=== PATIENT | female | born 1980 | race Caucasian/White ===

== ENCOUNTER → 2017-12-31 11:34 | Outpatient (CLI) | payer OTHER, SELFPAY ==
[2017-12-31 12:16] LABS: Add Manual Diff / Slide Review NO; Basophils Percent Auto 0.4 % (0-2); Hematocrit 41.5 % (36-46); Hemoglobin 14.3 g/dL (12.0-16.0); Lymphocytes Percent Auto 20.5 % (25-40); Mean Corpuscular HGB Conc 34.4 % (30-36); Mean Corpuscular Hemoglobin 32.4 PG (26-34); Mean Corpuscular Volume 94.2 fL (80-100); Monocytes Percent Auto 7.6 % (3-14); Neutrophils Absolute Auto 3900 /uL (3000-5900); Neutrophils Percent Auto 67.5 % (50-75); Platelet Count 226 X10^3/uL (150-400); Red Blood Cell Count 4.41 X10^6/uL (4.0-5.2); Red Cell Distribution Width 12.4 % (11.6-14.8); White Blood Cell Count 5.8 X10^3/uL (4.5-11.0)
[2017-12-31 13:13] LABS: Alanine Aminotransferase 33 IU/L (9-52); Albumin 4.4 g/dL (3.5-5.0); Albumin Globulin Ratio 1.5 (1.0-2.8); Alkaline Phosphatase 87 U/L (38-126); Aspartate Aminotransferase 25 IU/L (14-36); BUN Creatinine Ratio 17.1 (6-22); Bilirubin Total 0.6 mg/dL (0.2-1.3); Blood Urea Nitrogen 12 mg/dL (7-17); Calcium 9.9 mg/dL (8.4-10.2); Carbon Dioxide 34 mmol/L (22-32); Chloride 102 mmol/L (98-107); Estimated Glomerular Filt Rate > 60.0 mL/min (>60); Glucose 90 mg/dL (70-100); HEMOLYSIS < 15 (0-50); Potassium 4.2 mmol/L (3.4-5.1); Sodium 144 mmol/L (137-145); Total Protein 7.4 g/dL (6.3-8.2)
[2018-01-02 15:57] LABS: Cancer Antigen 27.29 16 U/mL (< 38)
--- NOTE | 2018-02-11 09:02 | ONC.NAV ---
Description: Survivorship Care Summary Packet Activity: Sent copies to both patient and primary care provider.
== END ==
PROVIDERS: PCP Family Medicine; Visit Provider Internal Medicine Medical Oncology
DX: C50.911 Malignant neoplasm of unspecified site of right female breast (principal)
CPT/HCPCS: 36415; 80053; 84443; 85025; 86300

== ENCOUNTER → 2018-05-09 11:43 | Outpatient (CLI) | payer OTHER, SELFPAY ==
--- NOTE | 2018-05-09 | DI.MG.S_ITS ---
UNILATERAL LEFT DIGITAL SCREENING MAMMOGRAM 3D/2D WITH CAD POST MASTECTOMY: 05/09/2018 CLINICAL: Routine screening. Personal history of right breast cancer. Comparison is made to exams dated: 05/03/2017 mammogram, 03/20/2016 breast MRI, and 02/21/2016 mammogram - [facility]. The tissue of left breast is heterogeneously dense. This may lower the sensitivity of mammography. Current study was also evaluated with a Computer Aided Detection (CAD) system. No significant masses, calcifications, or other findings are seen in the breast. There has been no significant interval change. IMPRESSION: NEGATIVE There is no mammographic evidence of malignancy. A 1 year screening mammogram is recommended. This exam was interpreted at Station ID: [id number]. NOTE: For mammograms, a report in lay terms will be sent to the patient. Approximately 15% of breast malignancies will not be visualized mammographically. In the management of a palpable breast mass, a negative mammogram must not discourage biopsy of a clinically suspicious lesion. Electronically Signed By: Indy henderson/jada:05/09/2018 12:37:13 copy to: COREY ROSA letter sent: Normal Exam ACR BI-RADS Category 1: Negative 3341F
== END ==
PROVIDERS: Family Provider Family Medicine; PCP Family Medicine; Visit Provider Internal Medicine Medical Oncology
DX: Z12.31 Encounter for screening mammogram for malignant neoplasm of breast (principal); Z85.3 Personal history of malignant neoplasm of breast
CPT/HCPCS: 77063; 77067

== ENCOUNTER → 2018-05-26 11:03 | Outpatient (CLI) | payer OTHER, SELFPAY ==
--- NOTE | 2018-05-26 | DI.RAD.S_ITS ---
PROCEDURE: XR CHEST 2V INDICATIONS: COUGH TECHNIQUE: 2 views of the chest were acquired. COMPARISON: [facility], , CHEST 1 VIEW, 05/01/2016, 9:33. FINDINGS: Surgical changes and devices: Prior right surgical clips, consistent with rest carcinoma treatment. No sign of metastatic disease. Lungs and pleura: Lungs are clear. No pleural effusions or pneumothorax. Mediastinum: Mediastinal contours are normal. Heart size is normal. Bones and chest wall: No suspicious bony abnormalities. Soft tissues appear unremarkable. IMPRESSION: Normal for age. Source of cough symptoms is not found. Dictated by: Aj Munoz M.D. on 05/26/2018 at 11:22 Approved by: Aj Munoz M.D. on 05/26/2018 at 11:22
== END ==
PROVIDERS: Family Provider Family Medicine; PCP Family Medicine; Visit Provider Family Medicine
DX: R05 Cough (principal)
CPT/HCPCS: 71046

== ENCOUNTER → 2018-06-13 09:55 | Outpatient (CLI) | payer OTHER, SELFPAY ==
[2018-06-13 10:43] LABS: Add Manual Diff / Slide Review NO; Basophils Absolute Auto 0 /uL (0-100); Basophils Percent Auto 0.2 % (0-2); Eosinophils Absolute Auto 100 /uL (0-450); Eosinophils Percent Auto 2.5 % (2-4); Hematocrit 40.2 % (36-46); Hemoglobin 13.7 g/dL (12.0-16.0); Lymphocytes Absolute Auto 1100 /uL (1100-4500); Mean Corpuscular HGB Conc 34.1 % (30-36); Mean Corpuscular Volume 93.8 fL (80-100); Monocytes Absolute Auto 500 /uL (0-900); Monocytes Percent Auto 9.1 % (3-14); Neutrophils Absolute Auto 3600 /uL (1500-7000); Neutrophils Percent Auto 68.2 % (50-75); Platelet Count 197 X10^3/uL (150-400); Red Blood Cell Count 4.28 X10^6/uL (4.0-5.2); Red Cell Distribution Width 12.6 % (11.6-14.8); White Blood Cell Count 5.3 X10^3/uL (4.5-11.0)
[2018-06-13 11:24] LABS: Alanine Aminotransferase 38 IU/L (9-52); Albumin 4.4 g/dL (3.5-5.0); Albumin Globulin Ratio 1.5 (1.0-2.8); Alkaline Phosphatase 73 U/L (38-126); Aspartate Aminotransferase 27 IU/L (14-36); BUN Creatinine Ratio 18.6 (6-22); Bilirubin Total 0.5 mg/dL (0.2-1.3); Blood Urea Nitrogen 13 mg/dL (7-17); Calcium 9.3 mg/dL (8.4-10.2); Carbon Dioxide 29 mmol/L (22-32); Chloride 102 mmol/L (98-107); Cholesterol 166 mg/dL (140-199); Estimated Glomerular Filt Rate > 60.0 mL/min (>60); Globulin 2.9 g/dL (1.7-4.1); Glucose 93 mg/dL (70-100); HDL Cholesterol 49 mg/dL (40-60); HEMOLYSIS < 15 (0-50); LDL Cholesterol Calculated 99 mg/dL (<100); Potassium 4.3 mmol/L (3.4-5.1); Sodium 138 mmol/L (137-145); Total Protein 7.3 g/dL (6.3-8.2); Triglycerides 90 mg/dL (35-150)
[2018-06-13 11:40] LABS: C-Reactive Protein Quant < 0.5 mg/dL (<1.0)
[2018-06-13 11:44] LABS: Erythrocyte Sedimentation Rate 3 MM/HR (0-20)
== END ==
PROVIDERS: PCP Family Medicine; Visit Provider Family Medicine
DX: C50.911 Malignant neoplasm of unspecified site of right female breast (principal); R05 Cough; R35.0 Frequency of micturition; Z00.00 Encounter for general adult medical examination without abnormal findings
CPT/HCPCS: 36415; 80053; 80061; 84443; 85025; 85651; 86140

== ENCOUNTER → 2018-06-27 15:42 | Outpatient (CLI) | payer OTHER, SELFPAY ==
--- NOTE | 2018-06-27 | DI.CT.S_ITS ---
PROCEDURE: CT CHEST W CON INDICATIONS: COUGH, BREAST CANCER, RIGHT LOWER LEG PAIN TECHNIQUE: After the administration of intravenous contrast, 5 mm thick sections acquired from the pulmonary apices to the posterior costophrenic angles. 7 mm thick coronal and sagittal MIP reformats were acquired. For radiation dose reduction, the following was used: automated exposure control, adjustment of mA and/or kV according to patient size. COMPARISON: None. FINDINGS: Image quality: Excellent. Lungs and pleura: No acute consolidation. No pleural effusions or pneumothorax. Central and peripheral airways are patent and normal in caliber. Mediastinum: Heart size is normal. No pericardial effusion. Subcentimeter right hilar lymph node noted however no mediastinal or hilar adenopathy by size criteria. Thoracic aorta and central pulmonary arteries are normal in size. Esophagus is normal in caliber. No hiatal hernia. Bones and chest wall: Status post right mastectomy with reconstructive changes. No suspicious bony lesions. No vertebral body compression fractures. No axillary or supraclavicular adenopathy by size criteria. Thyroid gland unremarkable. Abdomen: Gallbladder surgically absent. Hepatic steatosis. IMPRESSION: No acute consolidation. Hepatic steatosis. Dictated by: Phillip Ochoa M.D. on 06/27/2018 at 17:18 Approved by: Phillip Ochoa M.D. on 06/27/2018 at 17:44
--- NOTE | 2018-06-27 | DI.US.S_ITS ---
PROCEDURE: US PERIPH VENOUS LOW EXTREM RT INDICATIONS: RIGHT LOWER LEG PAIN TECHNIQUE: Real-time imaging, as well as color and pulse Doppler interrogation, were performed of the lower extremity deep veins from the inguinal ligament to the popliteal fossa. COMPARISON: None. FINDINGS: The common femoral, femoral and popliteal veins are normally compressible, and free of intraluminal thrombus. Color and pulse Doppler demonstrate normal phasic intraluminal flow. There is normal augmentation response to distal compression maneuver. IMPRESSION: No deep venous thrombosis in the right lower extremity. Dictated by: Grecia Chavez M.D. on 06/27/2018 at 17:10 Approved by: Grecia Chavez M.D. on 06/27/2018 at 17:11
== END ==
PROVIDERS: PCP Family Medicine; Visit Provider Family Medicine
DX: R05 Cough (principal); C50.811 Malignant neoplasm of overlapping sites of right female breast; Z17.0 Estrogen receptor positive status [ER+]; M79.661 Pain in right lower leg; K76.0 Fatty (change of) liver, not elsewhere classified; Z90.49 Acquired absence of other specified parts of digestive tract
CPT/HCPCS: 71260; 93971; Q9967

== ENCOUNTER → 2019-05-12 11:14 | Outpatient (CLI) | payer OTHER, SELFPAY ==
--- NOTE | 2019-05-12 | DI.MG.S_ITS ---
UNILATERAL LEFT DIGITAL SCREENING MAMMOGRAM 3D/2D WITH CAD POST MASTECTOMY: 05/12/2019 CLINICAL: Routine screening. Personal history of right breast cancer. Comparison is made to exams dated: 05/09/2018 mammogram and 05/03/2017 mammogram - [facility]. The tissue of left breast is heterogeneously dense. This may lower the sensitivity of mammography. Current study was also evaluated with a Computer Aided Detection (CAD) system. No significant masses, calcifications, or other findings are seen in the breast. There has been no significant interval change. IMPRESSION: NEGATIVE There is no mammographic evidence of malignancy. A 1 year screening mammogram is recommended. This exam was interpreted at Station ID: [id number]. NOTE: For mammograms, a report in lay terms will be sent to the patient. Approximately 15% of breast malignancies will not be visualized mammographically. In the management of a palpable breast mass, a negative mammogram must not discourage biopsy of a clinically suspicious lesion. Electronically Signed By: Brendon trujillo/jada:05/12/2019 13:04:18 copy to: ROYAL BARROW letter sent: Normal Exam ACR BI-RADS Category 1: Negative 3341F
== END ==
PROVIDERS: PCP Family Medicine; Referring Provider Internal Medicine; Visit Provider Family Medicine
DX: Z12.31 Encounter for screening mammogram for malignant neoplasm of breast (principal); Z85.3 Personal history of malignant neoplasm of breast
CPT/HCPCS: 77063; 77067

== ENCOUNTER → 2020-05-13 15:34 | Outpatient (CLI) | payer OTHER, SELFPAY ==
--- NOTE | 2020-05-13 | DI.MG.S_ITS ---
UNILATERAL LEFT DIGITAL SCREENING MAMMOGRAM 3D/2D WITH CAD POST MASTECTOMY: 05/13/2020 CLINICAL: Routine screening. Personal history of right breast cancer. Comparison is made to exams dated: 05/12/2019 mammogram, 05/09/2018 mammogram, and 05/03/2017 mammogram - [facility]. The tissue of left breast is heterogeneously dense. This may lower the sensitivity of mammography. Current study was also evaluated with a Computer Aided Detection (CAD) system. No significant masses, calcifications, or other findings are seen in the breast. There has been no significant interval change. IMPRESSION: NEGATIVE There is no mammographic evidence of malignancy. A 1 year screening mammogram is recommended. This exam was interpreted at Station ID: [id number]. NOTE: For mammograms, a report in lay terms will be sent to the patient. Approximately 15% of breast malignancies will not be visualized mammographically. In the management of a palpable breast mass, a negative mammogram must not discourage biopsy of a clinically suspicious lesion. Electronically Signed By: Collin Mclaughlin M.D., jr/jada:05/13/2020 15:46:15 copy to: COREY ROSA letter sent: Normal Exam ACR BI-RADS Category 1: Negative 3341F
== END ==
PROVIDERS: PCP Registered Nurse Diabetes Educator; Referring Provider Internal Medicine Hematology & Oncology; Visit Provider Internal Medicine Hematology & Oncology
DX: Z12.31 Encounter for screening mammogram for malignant neoplasm of breast (principal); Z80.3 Family history of malignant neoplasm of breast
CPT/HCPCS: 77063; 77067

== ENCOUNTER → 2020-07-21 09:49 | Outpatient (CLI) | payer OTHER, SELFPAY ==
[2020-07-21] MEDS: COVID-19 VACC, Ad26(JANSSEN)/PF 0.5 ML IM (09:55)
== END ==
PROVIDERS: PCP Registered Nurse Diabetes Educator; Visit Provider Internal Medicine
DX: Z23 Encounter for immunization (principal)
CPT/HCPCS: 0031A; 91303

== ENCOUNTER → 2020-09-08 12:17 | Outpatient (CLI) | payer OTHER, SELFPAY ==
--- NOTE | 2020-09-08 12:18 | DI.US.S_ITS ---
PROCEDURE: US PELVIC COMPLETE INDICATIONS: MENORRHAGIA AND DYSMENORRHEA TECHNIQUE: Real-time scanning was performed of the pelvic organs, with image documentation. Additional endovaginal scanning was necessary due to incomplete visualization of the adnexal and endometrial structures by transabdominal scanning. COMPARISON: [facility], CT, KIDNEY/ URETER/BLADDER, 05/27/2017, 8:13. [facility], US, PELVIC COMPLETE, 09/20/2016, 13:08. FINDINGS: Uterus: Uterus is mildly enlarged at 11.9 x 7.9 x 5.8 cm. The uterus is heterogeneous, with a complex heterogeneous cystic and solid mass with mild internal vascularity that measures 5.2 x 5.7 x 3.5 cm. The endometrial stripe is not well seen, with a small amount of fluid seen along the endocervical canal. Incidental note is made of nabothian cysts. Ovaries: The right ovary measures 3 x 2.1 x 1.9 cm. The left ovary measures 3.2 x 1.8 x 2.3 cm. The ovaries have a normal sonographic appearance, with note made of normal appearing follicles on each side. No adnexal masses are seen. Other: No pathologic free abdominal or pelvic fluid. IMPRESSION: The uterus demonstrates a cystic and solid mass that measures up to 5.7 cm. Differential diagnosis includes a true mass versus a fibroid. This is not definitely seen on the 2017 pelvic ultrasound or on the [address] Please consider additional evaluation with gynecological protocol MRI (without and with contrast) (assuming that there is no contraindication). Alternatively, hysteroscopy with endometrial sampling could be considered. The endometrial stripe is not well seen. Dictated by: Vickey Dunn M.D. on 09/08/2020 at 15:37 Approved by: Vickey Dunn M.D. on 09/08/2020 at 15:42
== END ==
PROVIDERS: PCP Registered Nurse Diabetes Educator; Referring Provider Registered Nurse Diabetes Educator; Visit Provider Registered Nurse Diabetes Educator
DX: N92.4 Excessive bleeding in the premenopausal period (principal); N94.6 Dysmenorrhea, unspecified; N85.9 Noninflammatory disorder of uterus, unspecified
CPT/HCPCS: 76830; 76856

== ENCOUNTER → 2020-09-26 12:07 | Outpatient (CLI) | payer OTHER, SELFPAY ==
--- NOTE | 2020-09-26 12:08 | DI.MRI.S_ITS ---
PROCEDURE: MR PELVIS WO/W CON INDICATIONS: further eval of uterine mass seen on US TECHNIQUE: Coronal HASTE, sagittal breath-hold T2 FSE; axial T1 FSE with and without fat saturation through the pelvis. Optional long- and short-axis uterine nonbreath-hold T2 FSE through the uterus. Sagittal or axial dynamic VIBE during administration of contrast. Post-contrast axial or coronal VIBE/2-D FLASH with fat saturation from the iliac crests to the symphysis. Optional diffusion weighted imaging and ADC may be performed. COMPARISON: [facility], US, US PELVIC COMPLETE, 09/08/2020, 12:34. FINDINGS: Image quality: Excellent. Uterus: There is a circumscribed heterogeneous oval mass within the fundal endometrium measuring up to 6.0 x 2.9 x 4.5 cm. The mass is predominantly solid with internal enhancement. There also few internal areas of intrinsic T1 hyperintensity and T2 hypointensity consistent with blood products. A small amount of endometrial fluid is also present. Junctional zone is normal in thickness at 12 mm or less. Adnexa: There is a thick-walled peripherally enhancing cyst in the right ovary measuring up to approximately 2.3 cm likely representing a corpus luteal cyst. A few small follicles are also noted within the ovaries bilaterally. Urinary system: Bladder wall is normal in thickness. Distal ureters are non distended. Urethra appears normal in morphology. Nodes and vessels: No pelvic or inguinal adenopathy by size criteria. Iliac vessels are normal in size. Bowel and peritoneum: Visualized colon and small bowel loops are normal in caliber. There is a small amount of free fluid in the pelvis which appears within physiologic limits. Soft tissues: No inguinal hernias. No findings of pelvic floor incompetence in the absence of provocation. Bones: Marrow demonstrates normal overall signal. IMPRESSION: 1. Circumscribed heterogeneous enhancing mass demonstrated within the fundal endometrium. The findings likely represent an endometrial polyp or a submucosal fibroid. The differential also includes endometrial carcinoma although this is considered less likely given the circumscribed margins. 2. Internal areas of intrinsic T1 hyperintensity within the mass consistent with blood products from internal hemorrhage. 3. Thick walled right ovarian cyst likely represents a corpus luteal cyst. Dictated by: Grupo Shah M.D. on 09/26/2020 at 13:32 Approved by: Grupo Shah M.D. on 09/26/2020 at 14:14
== END ==
PROVIDERS: PCP Registered Nurse Diabetes Educator; Referring Provider Registered Nurse Diabetes Educator; Visit Provider Registered Nurse Diabetes Educator
DX: N85.8 Other specified noninflammatory disorders of uterus (principal); N83.201 Unspecified ovarian cyst, right side
CPT/HCPCS: 72197

== ENCOUNTER → 2021-01-25 15:24 | Outpatient (CLI) | payer OTHER, SELFPAY ==
[2021-01-25 15:56] LABS: COVID19 -Nasal RAPID Negative (Negative)
== END ==
PROVIDERS: PCP Registered Nurse Diabetes Educator; Visit Provider Specialist
DX: Z01.812 Encounter for preprocedural laboratory examination (principal); Z20.822 Contact with and (suspected) exposure to COVID-19
CPT/HCPCS: 87635

== ENCOUNTER 2021-01-26 08:06 | Day surgery (SDC) | payer OTHER, SELFPAY ==
[2021-01-26] VITALS (8 sets, daily range): BP systolic 92–106; BP diastolic 32–69; PULSE 58–74; RESP 13–19; TEMP 36.4–37; O2SAT 97–99; BMI 27.8
--- NOTE | 2021-01-26 | PATH_ITS ---
[facility] [place] Accession Number: [id number] . 01 Material submitted: . uterus - UTERUS, BILATERAL OVARIES, BILATERAL FALLOPIAN TUBES . 02 Diagnosis: Uterus, Bilateral Ovaries and Fallopian Tubes, Supracervical Hysterctomy and Bilateral Salpingo-oophorectomy: Weakly proliferative endometrium with large (7 cm) endometrial polyp. Myometrium with no diagnostic abnormality. Ovary with hemorrhagic corpus luteum cyst. Contralateral ovary with no diagnostic abnormality. Bilateral fimbriated fallopian tubes with no diagnostic abnormality. No evidence of neoplasm. MRV 01/30/2021 1241 Local . 02 Electronically signed: . Andrea Hill MD, PhD, Pathologist NPI- [id number] . 01 Gross description: . The specimen is received in formalin, labeled uterus, bilateral ovaries, bilateral fallopian tubes and consists of a fragmented uterus weighing 152 grams and measuring 13.0 x 12.0 x 6.0 cm in aggregate. A cervix is not identified. The serosa is mcintyre-pink and smooth. Sectioning reveals a mcintyre-pink glistening and hemorrhagic endometrium measuring 0.1 cm in thickness. The myometrium is mcintyre-pink and trabeculated, measuring 3.0 cm in thickness. There is a 7.0 x 4.0 x 2.0 cm irregular mcintyre-pink focally cystic soft fragment of tissue (possible mass). Also received are two detached ovaries measuring 2.5 x 1.5 x 1.0 cm and 2.8 x 2.0 x 1.4 cm. The external surfaces are mcintyre and smooth to cerebriform. Sectioning reveals a 0.6 x 0.5 x 0.4 cm smooth walled serous-filled cyst within one of the ovaries with no papillary excrescences. The fallopian tubes measure 6.0 cm in length by 0.8 cm in diameter and 5.5 cm in length by 0.7 cm in diameter. The serosa is mcintyre-pink and smooth with multiple paratubal cysts ranging from 0.1-0.5 cm. Sectioning reveals a mcintyre-pink mucosa and a stellate lumen measuring 0.3 cm in diameter. Farm Management Teacher sections are submitted. . A1-A2: Farm Management Teacher uterus. A3-A7: Farm Management Teacher possible mass. A8-A9: Farm Management Teacher ovary. A10-A11: Fallopian tubes, labor representative cross sections and bisected fimbria. (EA:cmc10) /MRV 01/27/2021 1045 Local . 02 Pathologist provided ICD-10: N84.0, Z79.810, Z85.3 . 02 CPT . 388440 Performed at: 01 [facility] [address] [id number] MD Grupo Stevens MD Phone: [phone] Performed at: 02 [facility] [address] [place] [id number] MD Alexa Dela Cruz MD Phone: [phone]
[2021-01-26] MEDS: LACTATED RINGERS 1,000 ML 100 ML IV ×2 (08:45→11:00)
--- NOTE | 2021-01-26 08:56 | PM.PREOP ---
Pre-operative Note COVID-19 COVID-19 status: Negative Result date/Date tested (Pos, Neg/Pending): 01/25/21 Interval Note History & Physical reviewed/Exam performed by Physician: Yes Changes to H&P: No H&P completed within 30 days and has changed as indicated here:: 01/25/21
[2021-01-26] MEDS: CEFAZOLIN 1 GM VIAL 2 GM IV (09:29)
--- NOTE | 2021-01-26 09:38 | SUR.OPER ---
Lithotomy on padded OR bed. [place] Pad Positioner under torso. Head on pillow, arms padded and tucked at sides. Legs secured in padded yellow fins stirrups.
[2021-01-26] MEDS: BUPIVACAINE 0.5% (PF) VIAL 30 ML INJ (10:23)
[2021-01-26] MEDS: ROPIVACAINE 0.2% PF 2 MG/ML 10ML AMP 20 ML INJ (10:25)
--- NOTE | 2021-01-26 11:01 | P.OP_ITS ---
Operative Date/Time/Diagnoses Date of procedure: 01/26/21 Time of procedure: 11:01 Pre-op diagnosis: History of breast cancer On tamoxifen Endometrial mass Post-op diagnosis: same Procedure & Clinicians Procedure: Procedures Operation Date: 01/26/21 09:30 Actual Procedure Side Surgeon p Laparoscopic Supracervical Hysterectomy w/ bilateral salpingectomies & oophorectomies Nela Bertrand MD Indications: History of breast cancer On tamoxifen Endometrial mass Surgeon: Nela Bertrand Anesthesia Type: General and Local Operative Notes Findings: 7 week size anteverted uterus Endometrial changes consistent with tamoxifen use Normal tubes and ovaries Normal liver Normal appendix Closure Type: primary Specimen(s): left tube & ovary, right tube & ovary and uterus Applied: catheter (Removed at the end of the case) Estimated blood loss (mL): 10 Blood products transfused: none Procedure in detail: The patient was taken to the operating room where she was placed in the dorsal supine position. After adequate general endotracheal anesthesia was achieved, she was placed in the dorsal lithotomy position, and prepped and draped in the usual sterile fashion. A timeout was performed. A bivalve speculum was placed into the vagina and the anterior lip of the cervix grasped with a single-tooth tenaculum. The cervical os was sequentially dilated until the ZUMI uterine manipulator could pass easily into the endometrial cavity. The single-tooth tenaculum was removed from the anterior lip of the cervix, and the bivalve speculum was removed from the vagina. Attention was then turned to the abdomen where 6 mL of half percent Marcaine with epinephrine were injected in the umbilical fold. A 5 mm incision was made. The Veress needle was placed into the peritoneal cavity, and its placement confirmed by asp iration and drop test. The Veress needle was removed. A 5 mm trocar was placed without difficulty. 2 other incisions were made 4 cm lateral to the umbilicus after 5 mL of half percent Marcaine with epinephrine were injected. These were 5 mm incisions. Two, 5 mm trocars were placed under direct visualization. The right tube and ovary were grasped with an atraumatic grasper. Using the plasma kinetic with settings of 40 W the mesosalpinx was cauterized and cut all the way down to the cornua of the uterus. The cornua of the uterus was then grasped with an atraumatic grasper. The utero-ovarian ligaments were cauterized and cut. The round ligament and broad ligament were cauterized and cut with plasma kinetic. Hemostasis was achieved. The bladder flap was created using the plasma kinetic with cautery and cut custodial across. The uterine arteries on the right side were extensively cauterized with the plasma kinetic. All of this was repeated on the left side. The remainder of the bladder flap was created using the plasma kinetic, and the bladder taken down off the lower uterine segment and cervix. Using the [place], the cervix was amputated from the uterus 2 cm above the uterosacral ligaments, after the ZUMI uterine manipulator was removed from the uterus and a moistened sponge stick was placed in the vagina. There was a small amount of bleeding noted from the posterior edge of the cervix, and this was cauterized for hemostasis. 6 mL of half percent Marcaine with epinephrine were injected above the pubic symphysis. A 12mm incision was made. A 12 mm trocar was placed under direct visualization. The trocar was removed. An Endobag was placed through the suprapubic incision and the uterus and tubes and ovaries were placed into the Endobag. The fascial incision was extended slightly on either side. An Michael was placed into the endobag. The uterus was morcellated in approximately 4 pieces. The tubes and ovaries were also removed from the Endobag. The Endobag was removed from the peritoneal cavity. The pelvis was copiously irrigated with warm normal saline. No bleeding was noted. 20 mL of 0.2% ropivacaine were placed over the pelvic pedicles. The instruments were removed from the abdomen. The CO2 was allowed to escape. The suprapubic incision was closed on the fascia with 0 Vicryl. Three simple interrupted sutures of 3-0 Vicryl were placed in the subcutaneous layer on the suprapubic incision. All of the incisions were closed with 4-0 Biosyn in a subcuticular fashion. Steri strips and Allevyn dressings were placed over the incisions. The moistened sponge stick was removed from the vagina. Sponge, lap, and instrument counts were correct x 2. The patient tolerated the procedure well, was taken to PACU in stable condition. Complications: none Post-operative Condition: stable Disposition: PACU Plan for aftercare: Home after recovery
--- NOTE | 2021-01-26 11:08 | SUR.PHASEI ---
Pt arrived, patent airway, denied pain, resting comfortably, Dr. Bertrand instructed to d/chitra mills.
[2021-01-26] MEDS: OXYCODONE/ACETAMINOPHEN 5/325 TABLET 1 TAB PO (11:26)
--- NOTE | 2021-01-26 11:57 | SUR.PHASEII ---
Received pt from [facility], dressings and concepcion pad checked, Dr. Bertrand spoke with pt at bedside.
--- NOTE | 2021-01-26 13:18 | SUR.PHASEII ---
Pt resting, dressings to abdomen remained c/d/i and concepcion pad with scant bloody drainage
--- NOTE | 2021-01-26 13:39 | SUR.PHASEII ---
Pt dressed and ready for ride to come. Voiced an understanding of d/c instructions.
--- NOTE | 2021-01-26 13:53 | SUR.PHASEII ---
Ride arrived, pt left in stable condition.
== END 2021-01-26 13:45 | disposition home or self-care (01) ==
PROVIDERS: PCP Registered Nurse Diabetes Educator; Referring Provider Obstetrics & Gynecology; Visit Provider Obstetrics & Gynecology
PROC: 0UT94ZL Resection of Uterus, Supracervical, Percutaneous Endoscopic Approach (ICD-10-PCS; CPT 58542; principal; 2021-01-26 09:30)
DX: N84.0 Polyp of corpus uteri (principal); Z85.3 Personal history of malignant neoplasm of breast; Z79.810 Long term (current) use of selective estrogen receptor modulators (SERMs); N83.10 Corpus luteum cyst of ovary, unspecified side
CPT/HCPCS: 58542; 81025; J0690; J1100; J1885; J2250; J2405; J2704; J2795; J3010

== ENCOUNTER → 2021-04-26 14:03 | Outpatient (CLI) | payer OTHER, SELFPAY ==
--- NOTE | 2021-04-26 | DI.RAD.S_ITS ---
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 FINDINGS: This blank DEXA report has been sent in error by the PACS system. The correct and complete report will be forthcoming in 1-2 days. Thank you for your patience and understanding. Dictated by: Wendi Looney MD, PhD on 04/26/2021 at 15:51 Approved by: Wendi Looney MD, PhD on 04/26/2021 at 15:51
== END ==
PROVIDERS: PCP Registered Nurse Diabetes Educator; Referring Provider Internal Medicine Hematology & Oncology; Visit Provider Internal Medicine Hematology & Oncology
DX: Z78.0 Asymptomatic menopausal state (principal); C50.919 Malignant neoplasm of unspecified site of unspecified female breast; Z79.811 Long term (current) use of aromatase inhibitors; Z90.722 Acquired absence of ovaries, bilateral
CPT/HCPCS: 77080

== ENCOUNTER → 2021-05-16 15:37 | Outpatient (CLI) | payer OTHER, SELFPAY ==
--- NOTE | 2021-05-16 | DI.MG.S_ITS ---
UNILATERAL LEFT DIGITAL SCREENING MAMMOGRAM 3D/2D WITH CAD: 05/16/2021 CLINICAL: Routine screening. Personal history of right breast cancer. Comparison is made to exams dated: 05/13/2020 mammogram, 05/12/2019 mammogram, 05/09/2018 mammogram, and 05/03/2017 mammogram - [facility]. The tissue of left breast is heterogeneously dense. This may lower the sensitivity of mammography. Current study was also evaluated with a Computer Aided Detection (CAD) system. No significant masses, calcifications, or other findings are seen in the breast. There has been no significant interval change. IMPRESSION: NEGATIVE There is no mammographic evidence of malignancy. A 1 year screening mammogram is recommended. This exam was interpreted at Station ID: [id number]. NOTE: For mammograms, a report in lay terms will be sent to the patient. Approximately 15% of breast malignancies will not be visualized mammographically. In the management of a palpable breast mass, a negative mammogram must not discourage biopsy of a clinically suspicious lesion. Electronically Signed By: Brendon trujillo/jada:05/18/2021 07:43:08 copy to: DANYELLE SANTOS letter sent: Normal Exam ACR BI-RADS Category 1: Negative 3341F
== END ==
PROVIDERS: PCP Registered Nurse Diabetes Educator; Referring Provider Registered Nurse Diabetes Educator; Visit Provider Registered Nurse Diabetes Educator
DX: Z12.31 Encounter for screening mammogram for malignant neoplasm of breast (principal); Z85.3 Personal history of malignant neoplasm of breast
CPT/HCPCS: 77063; 77067

== ENCOUNTER → 2022-01-22 09:03 | Outpatient (CLI) | payer OTHER, SELFPAY ==
[2022-01-22 13:06] LABS: Alanine Aminotransferase 27 IU/L (<35); Albumin 4.3 g/dL (3.5-5.0); Albumin Globulin Ratio 1.3 (1.0-2.8); Alkaline Phosphatase 94 U/L (38-126); Aspartate Aminotransferase 26 IU/L (14-36); BUN Creatinine Ratio 20.3 (6-22); Bilirubin Total 0.5 mg/dL (0.2-1.3); Blood Urea Nitrogen 13 mg/dL (7-17); Calcium 9.4 mg/dL (8.4-10.2); Carbon Dioxide 30 mmol/L (22-32); Chloride 100 mmol/L (98-107); Cholesterol 204 mg/dL (140-199); Estimated Glomerular Filt Rate > 60 mL/min (>60); Globulin 3.2 g/dL (1.7-4.1); Glucose 84 mg/dL (70-100); HDL Cholesterol 64 mg/dL (40-60); HEMOLYSIS < 15 (0-50); LDL Cholesterol Calculated 128 mg/dL (<100); Potassium 4.2 mmol/L (3.4-5.1); Sodium 138 mmol/L (137-145); Total Protein 7.5 g/dL (6.3-8.2); Triglycerides 60 mg/dL (35-150)
[2022-01-22 13:40] LABS: Ferritin 34 ng/mL (6-137)
[2022-01-22 13:43] LABS: Add Manual Diff / Slide Review NO; Basophils Absolute Auto 0 /uL (0-100); Basophils Percent Auto 0.4 % (0-2); Eosinophils Absolute Auto 100 /uL (0-450); Eosinophils Percent Auto 1.6 % (2-4); Hematocrit 40.9 % (36-46); Hemoglobin 13.8 g/dL (12.0-16.0); Lymphocytes Absolute Auto 1300 /uL (1100-4500); Lymphocytes Percent Auto 28.8 % (25-40); Mean Corpuscular HGB Conc 33.9 % (30-36); Mean Corpuscular Hemoglobin 31.6 PG (26-34); Mean Corpuscular Volume 93.2 fL (80-100); Monocytes Absolute Auto 300 /uL (0-900); Monocytes Percent Auto 6.9 % (3-14); Neutrophils Absolute Auto 2800 /uL (1500-7000); Neutrophils Percent Auto 62.3 % (50-75); Platelet Count 251 X10^3/uL (150-400); Red Blood Cell Count 4.38 X10^6/uL (4.0-5.2); Red Cell Distribution Width 12.8 % (11.6-14.8); White Blood Cell Count 4.5 X10^3/uL (4.5-11.0)
[2022-01-22 13:56] LABS: Vitamin B12 238 pg/mL (239-931)
[2022-01-22 14:04] LABS: HEMOLYSIS < 15 (0-50); Iron 66 ug/dL (37-170)
[2022-01-22 14:16] LABS: Percent Iron Saturation 19 % (15-50); Total Iron Binding Capacity 343 ug/dL (265-497); Transferrin 257 mg/dL (206-381)
[2022-01-22 14:39] LABS: TSH w/ Reflex to FT4 2.57 uIU/mL (0.47-4.68)
== END ==
PROVIDERS: PCP Registered Nurse Diabetes Educator; Referring Provider Registered Nurse Diabetes Educator; Visit Provider Registered Nurse Diabetes Educator
DX: Z00.00 Encounter for general adult medical examination without abnormal findings (principal); C50.911 Malignant neoplasm of unspecified site of right female breast; F06.30 Mood disorder due to known physiological condition, unspecified; G47.00 Insomnia, unspecified; R20.2 Paresthesia of skin
CPT/HCPCS: 36415; 80053; 80061; 82607; 82728; 83540; 83550; 84443; 85025

== ENCOUNTER → 2022-02-19 11:59 | Outpatient (CLI) | payer OTHER, SELFPAY ==
[2022-02-19 12:57] LABS: COVID19 -Nasal RAPID Negative (Negative)
== END ==
PROVIDERS: PCP Registered Nurse Diabetes Educator; Visit Provider Registered Nurse Diabetes Educator
DX: Z20.822 Contact with and (suspected) exposure to COVID-19 (principal)
CPT/HCPCS: 87635

== ENCOUNTER → 2022-06-13 09:09 | Outpatient (CLI) | payer OTHER, SELFPAY ==
--- NOTE | 2022-06-13 | DI.MG.S_ITS ---
UNILATERAL LEFT DIGITAL SCREENING MAMMOGRAM 3D/2D WITH CAD POST MASTECTOMY: 06/13/2022 CLINICAL: Routine screening. Personal history of right breast cancer. Comparison is made to exams dated: 05/16/2021 mammogram, 05/13/2020 mammogram, and 05/12/2019 mammogram - [facility]. The left breast is heterogeneously dense, which may obscure small masses (category c / 51-75% glandular tissue). Current study was also evaluated with a Computer Aided Detection (CAD) system. No significant masses, calcifications, or other findings are seen in the breast. There has been no significant interval change. IMPRESSION: NEGATIVE There is no mammographic evidence of malignancy. A 1 year screening mammogram is recommended. This exam was interpreted at Station ID: [id number]. NOTE: For mammograms, a report in lay terms will be sent to the patient. Approximately 15% of breast malignancies will not be visualized mammographically. In the management of a palpable breast mass, a negative mammogram must not discourage biopsy of a clinically suspicious lesion. Electronically Signed By: Collin Mclaughlin M.D., jr/jada:06/14/2022 13:07:09 copy to: DANYELLE SANTOS letter sent: Normal Exam ACR BI-RADS Category 1: Negative 3341F
== END ==
PROVIDERS: PCP Registered Nurse Diabetes Educator; Referring Provider Registered Nurse Diabetes Educator; Visit Provider Registered Nurse Diabetes Educator
DX: Z12.31 Encounter for screening mammogram for malignant neoplasm of breast (principal); Z85.3 Personal history of malignant neoplasm of breast
CPT/HCPCS: 77063; 77067

== ENCOUNTER → 2023-06-18 09:16 | Outpatient (CLI) | payer OTHER, SELFPAY ==
--- NOTE | 2023-06-18 | DI.MG.S_ITS ---
UNILATERAL LEFT DIGITAL SCREENING MAMMOGRAM 3D/2D WITH CAD: 06/18/2023 CLINICAL: Routine screening. Personal history of right breast cancer. Comparison is made to exams dated: 06/13/2022 mammogram, 05/16/2021 mammogram, and 05/13/2020 mammogram - [facility]. The left breast is heterogeneously dense, which may obscure small masses (category c / 51-75% glandular tissue). Current study was also evaluated with a Computer Aided Detection (CAD) system. No significant masses, calcifications, or other findings are seen in the breast. There has been no significant interval change. IMPRESSION: NEGATIVE There is no mammographic evidence of malignancy. A 1 year screening mammogram is recommended. This exam was interpreted at Station ID: [id number]. NOTE: For mammograms, a report in lay terms will be sent to the patient. Approximately 15% of breast malignancies will not be visualized mammographically. In the management of a palpable breast mass, a negative mammogram must not discourage biopsy of a clinically suspicious lesion. Electronically Signed By: Daniela Stanley M.D., PH.D eb/penrad:06/18/2023 14:56:58 copy to: DANYELLE SANTOS letter sent: Normal Exam ACR BI-RADS Category 1: Negative 3341F
== END ==
PROVIDERS: PCP Registered Nurse Diabetes Educator; Referring Provider Registered Nurse Diabetes Educator; Visit Provider Registered Nurse Diabetes Educator
DX: Z12.31 Encounter for screening mammogram for malignant neoplasm of breast (principal); Z85.3 Personal history of malignant neoplasm of breast; R92.332 Mammographic heterogeneous density, left breast
CPT/HCPCS: 77063; 77067

== ENCOUNTER 2023-07-24 15:05 | Day surgery (SDC) | payer OTHER, SELFPAY ==
[2023-07-11 10:43] VITALS: BMI 32.5
[2023-07-24] VITALS (7 sets, daily range): BP systolic 92–122; BP diastolic 50–74; PULSE 55–72; RESP 12–17; TEMP 36.2–36.9; O2SAT 98–100; BMI 32.5
--- NOTE | 2023-07-24 | PATH_ITS ---
[facility] Accession Number: [id number] No. of containers..01 Tissue . 01 Material submitted: . breast - LEFT BREAST MASS . 01 Diagnosis: LEFT BREAST, MASS, EXCISION: Skin and adipose tissue with changes consistent with a ruptured epidermal inclusion cyst and associated mixed acute/chronic/granulomatous inflammation. Breast glandular tissue not present in specimen. Negative for neoplasia. MRV 07/26/2023 1633 Local . 01 Electronically signed: . Huma Osuna MD, Pathologist NPI- [id number] . 01 Gross description: . Received: In formalin with two identifiers and left breast mass. Specimen: An unoriented lumpectomy. Weight: 2 grams. Measurement: 2.2 x 1.6 x 1.0 cm. Skin ellipse: Present, measuring 2.1 x 0.8 cm. Wire: Absent. Margins: No orientation is provided, and the margins are inked blue. Sliced: The specimen is serially sectioned perpendicular to the skin surface into six slices. Lesion: An ill-defined, yellow-mcintyre, firm lesion. Size: 0.6 x 0.5 x 0.4 cm. Slices involved: Slices 3 and 4. Biopsy site: Absent. Distance to margins: The lesion grossly approaches the blue-inked margin. Other: The remaining cut surfaces are yellow to white fibroadipose tissue with fibrous tissue occupying less than 10% of the cut surface. The specimen is submitted entirely as follows: A1: Slice 1, perpendicular. A2-A5: Sequential slices. A6: Slice 6, perpendicular. Fixation: The specimen was removed on 07/24/2023 at 1734, time in formalin not provided. Cold ischemic time cannot be calculated. Total fixation time is approximately 24 hours. ([id number]) /MRV 07/25/2023 1259 Local . 01 Pathologist provided ICD-10: C50.911, N63.20 . 01 CPT . 312560 Specimen Comment: A courtesy copy of this report has been sent to [phone] Performed at: 01 [facility] [address] [place] [address], [place], [place] [id number] MD Grupo Stevens MD Phone: [phone]
[2023-07-24] MEDS: LACTATED RINGERS 1,000 ML 21 ML IV (15:55)
--- NOTE | 2023-07-24 16:49 | PM.PREOP ---
Pre-operative Note Interval Note History & Physical reviewed/Exam performed by Physician: Yes Changes to H&P: No
[2023-07-24] MEDS: CEFAZOLIN 2 GM/100 ML PREMIX 100 ML IV (17:25)
--- NOTE | 2023-07-24 17:25 | SUR.OPER ---
Supine on padded OR bed, head on pillow, arms secured on padded arm boards at <90 degrees abduction, legs uncrossed, safety belt at thigh, BILATERAL HEELS ON GEL PADS.
[2023-07-24] MEDS: BUPIVACAINE 0.25% (PF) VIAL 30 ML INJ (17:38)
--- NOTE | 2023-07-24 18:17 | PM.OP.1 ---
Operative Date/Time/Diagnoses Date of procedure: 07/24/23 Time of procedure: 18:17 Pre-op diagnosis: Left breast mass Post-op diagnosis: same Procedure & Clinicians Procedure: Excision of left breast mass Same procedure as scheduled: Yes Indications: 43-year-old woman with a history of stage III right breast cancer status post mastectomy with sentinel lymph node biopsy. She noticed an enlarging left breast mass of the medial aspect, imaging demonstrates a benign disease. Given her history she is concerned about the presence of the mass and requests excision. Surgeon: Austin Manzano Anesthesia Type: General Operative Notes Findings: 2 cm left breast cyst appearance consistent with a benign sebaceous cyst Specimen(s): other (Left breast mass) Estimated Blood Loss (mL): 10 Procedure in detail: Patient was brought to the operating room placed supine on the table. Bilateral lower extremity compression devices were applied. General anesthesia was induced and she was intubated with an LMA. She received 2 g of Ancef prior to skin incision. She was prepped and draped in sterile fashion time-out was performed. An elliptical incision was made around the mass which is superficial and at the 9 o'clock position. The mass was excised in its entirety and passed off the field as specimen. Its appearance was consistent with a sebaceous cyst. The wound was irrigated hemostasis was achieved. The subcutaneous tissue was reapproximated with Vicryl suture and this in closed with Monocryl followed by the application of Dermabond. The sponge and instrument count of the operation was correct x2. She tolerated the operation well and was transferred to recovery in stable condition. Complications: none Post-operative Condition: stable Disposition: same day surgery
== END 2023-07-24 18:45 | disposition home or self-care (01) ==
PROVIDERS: PCP Registered Nurse Diabetes Educator; Referring Provider Surgery; Visit Provider Surgery
PROC: (CPT 19120; principal; 2023-07-24 16:15)
DX: N63.20 Unspecified lump in the left breast, unspecified quadrant (principal)
CPT/HCPCS: 19120; J0690; J2250; J2405; J2704

== ENCOUNTER → 2023-08-28 10:21 | Outpatient (CLI) | payer OTHER, SELFPAY ==
[2023-08-28 11:44] LABS: Add Manual Diff / Slide Review NO; Basophils Absolute Auto 0 /uL (0-100); Basophils Percent Auto 0.4 % (0-2); Eosinophils Absolute Auto 100 /uL (0-450); Eosinophils Percent Auto 1.4 % (2-4); Hematocrit 41.4 % (36-46); Hemoglobin 14.2 g/dL (12.0-16.0); Lymphocytes Absolute Auto 1400 /uL (1100-4500); Lymphocytes Percent Auto 27.2 % (25-40); Mean Corpuscular HGB Conc 34.3 % (30-36); Mean Corpuscular Hemoglobin 32.5 PG (26-34); Mean Corpuscular Volume 94.9 fL (80-100); Monocytes Absolute Auto 300 /uL (0-900); Monocytes Percent Auto 6.8 % (3-14); Neutrophils Absolute Auto 3200 /uL (1500-7000); Neutrophils Percent Auto 64.2 % (50-75); Platelet Count 234 X10^3/uL (150-400); Red Blood Cell Count 4.36 X10^6/uL (4.0-5.2)
[2023-08-28 12:12] LABS: Alanine Aminotransferase 41 IU/L (<35); Albumin 4.6 g/dL (3.5-5.0); Albumin Globulin Ratio 1.6 (1.0-2.8); Alkaline Phosphatase 93 U/L (38-126); Aspartate Aminotransferase 33 IU/L (14-36); BUN Creatinine Ratio 21.7 (6-22); Bilirubin Total 0.8 mg/dL (0.2-1.3); Blood Urea Nitrogen 13 mg/dL (7-17); Calcium 9.5 mg/dL (8.4-10.2); Carbon Dioxide 29 mmol/L (22-32); Chloride 104 mmol/L (98-107); Cholesterol 200 mg/dL (140-199); Estimated Glomerular Filt Rate > 60 mL/min (>60); Globulin 2.9 g/dL (1.7-4.1); Glucose 104 mg/dL (70-100); HDL Cholesterol 62 mg/dL (40-60); HEMOLYSIS < 15 (0-50); LDL Cholesterol Calculated 124 mg/dL (<100); Potassium 3.9 mmol/L (3.4-5.1); Sodium 139 mmol/L (137-145); Total Protein 7.5 g/dL (6.3-8.2); Triglycerides 71 mg/dL (35-150)
[2023-08-28 12:41] LABS: TSH w/ Reflex to FT4 3.05 uIU/mL (0.47-4.68)
[2023-08-28 12:59] LABS: Vitamin B12 Reflex MMA if <400 875 pg/mL (239-931)
== END ==
PROVIDERS: PCP Registered Nurse Diabetes Educator; Referring Provider Registered Nurse Diabetes Educator; Visit Provider Registered Nurse Diabetes Educator
DX: E53.8 Deficiency of other specified B group vitamins (principal); E78.5 Hyperlipidemia, unspecified; Z00.00 Encounter for general adult medical examination without abnormal findings
CPT/HCPCS: 36415; 80053; 80061; 82607; 84443; 85025

== ENCOUNTER → 2023-11-19 13:33 | Outpatient (CLI) | payer OTHER, SELFPAY ==
[2023-11-19 14:17] LABS: COVID-19 CEPHEID 4-PLEX PCR Negative (Negative); Influenza A - CEPHEID Flu A NEGATIVE (NEGATIVE); Influenza B - CEPHEID Flu B NEGATIVE (NEGATIVE); Respiratory Syncytial Virus Negative (Negative)
== END ==
PROVIDERS: PCP Registered Nurse Diabetes Educator; Visit Provider Physician Assistant
DX: R05.1 Acute cough (principal)
CPT/HCPCS: 0241U

== ENCOUNTER → 2023-11-29 16:02 | Outpatient (CLI) | payer OTHER, SELFPAY ==
--- NOTE | 2023-11-29 16:03 | DI.RAD.S_ITS ---
PROCEDURE: XR CHEST 2V INDICATIONS: Cough TECHNIQUE: 2 views of the chest were acquired. COMPARISON: None. FINDINGS: Surgical changes and devices: None. Lungs and pleura: Lungs are clear. No pleural effusions or pneumothorax. Mediastinum: Mediastinal contours are normal. Heart size is normal. Bones and chest wall: No suspicious bony abnormalities. Soft tissues appear unremarkable. IMPRESSION: No acute pulmonary process. Dictated by: Faith Lawson M.D. on 12/02/2023 at 13:25 Approved by: Faith Lawson M.D. on 12/02/2023 at 13:26
== END ==
LOC: RAD 16:03
PROVIDERS: PCP Registered Nurse Diabetes Educator; Referring Provider Nurse Practitioner Family; Visit Provider Nurse Practitioner Family
DX: R05.9 Cough, unspecified (principal)
CPT/HCPCS: 71046

== ENCOUNTER → 2024-07-06 14:03 | Outpatient (CLI) | payer OTHER, SELFPAY ==
--- NOTE | 2024-07-06 14:05 | DI.MG.S_ITS ---
MM screening mammo unilat LT: 07/06/2024. BI-RADS: 1 CLINICAL: 44-year old female for left screening mammogram. No Tyrer-Cuzick risk score calculation due to the patient's personal history of breast cancer. Patient reports a history of right breast carcinoma diagnosed at age 39. Status-post right mastectomy with chemotherapy and hormonal therapy. No first-degree family history of breast cancer. The patient reports testing negative for BRCA gene mutation. The patient is status-post reduction mammoplasty. PRIOR EXAMS 06/18/2023, 06/13/2022, 05/16/2021, 05/13/2020, 07/20/2019, 05/15/2019, 05/12/2019, 05/09/2018, 05/03/2017, 04/10/2016, 03/21/2016, 03/20/2016, 03/07/2016, 02/21/2016. MAMMOGRAPHY TECHNIQUE: 2D and 3D (tomosynthesis) digital mammographic views obtained, with additional images as needed for full coverage. Current study was also evaluated with a Computer Aided Detection (CAD) system. DENSITY Left: B. There are scattered areas of fibroglandular density. MAMMOGRAPHY FINDINGS Left: No suspicious mass, asymmetry, microcalcification, or other abnormality seen. IMPRESSION: Left * No evidence of malignancy. RECOMMENDATIONS Left * Annual screening mammography. OVERALL ASSESSMENT CATEGORY BI-RADS-1: Negative. [employer] recommends annual screening mammography beginning at age 40 for women with average risk of breast cancer. ELECTRONICALLY SIGNED: Zenaida Vasquez M.D. on 07/06/2024 at 04:38:23 PM PT Interpreting Station ID: [id number]
== END ==
PROVIDERS: PCP Registered Nurse Diabetes Educator; Referring Provider Registered Nurse Diabetes Educator; Visit Provider Registered Nurse Diabetes Educator
DX: Z12.31 Encounter for screening mammogram for malignant neoplasm of breast (principal); Z85.3 Personal history of malignant neoplasm of breast; Z90.11 Acquired absence of right breast and nipple
CPT/HCPCS: 77063; 77067

== ENCOUNTER → 2024-08-26 09:37 | Outpatient (CLI) | payer OTHER, SELFPAY ==
[2024-08-26 10:59] LABS: Add Manual Diff / Slide Review NO; Basophils Absolute Auto 0 /uL (0-100); Basophils Percent Auto 0.3 % (0-2); Eosinophils Absolute Auto 100 /uL (0-450); Eosinophils Percent Auto 1.1 % (2-4); Hematocrit 41.4 % (36-46); Hemoglobin 14.6 g/dL (12.0-16.0); Lymphocytes Absolute Auto 1100 /uL (1100-4500); Lymphocytes Percent Auto 15.5 % (25-40); Mean Corpuscular HGB Conc 35.2 % (30-36); Mean Corpuscular Hemoglobin 32.5 PG (26-34); Mean Corpuscular Volume 92.2 fL (80-100); Monocytes Absolute Auto 600 /uL (0-900); Monocytes Percent Auto 7.9 % (3-14); Neutrophils Absolute Auto 5500 /uL (1500-7000); Neutrophils Percent Auto 75.2 % (50-75); Platelet Count 232 X10^3/uL (150-400); Red Blood Cell Count 4.49 X10^6/uL (4.0-5.2); White Blood Cell Count 7.4 X10^3/uL (4.5-11.0)
[2024-08-26 11:23] LABS: HEMOLYSIS < 15 (0-50); Iron 55 ug/dL (37-170)
[2024-08-26 11:28] LABS: Alanine Aminotransferase 41 IU/L (<35); Albumin 4.7 g/dL (3.5-5.0); Alkaline Phosphatase 113 U/L (38-126); Aspartate Aminotransferase 33 IU/L (14-36); BUN Creatinine Ratio 18.5 (6-22); Bilirubin Total 0.5 mg/dL (0.2-1.3); Bilirubin Unconjugated 0.2 mg/dL (0.0-1.1); Blood Urea Nitrogen 12 mg/dL (7-17); Calcium 9.6 mg/dL (8.4-10.2); Carbon Dioxide 28 mmol/L (22-32); Chloride 103 mmol/L (98-107); Cholesterol 202 mg/dL (140-199); Estimated Glomerular Filt Rate > 60 mL/min (>60); Globulin 2.4 g/dL (1.7-4.1); Glucose 110 mg/dL (70-99); HDL Cholesterol 60 mg/dL (40-60); HEMOLYSIS < 15 (0-50); LDL Cholesterol Calculated 132 mg/dL (<100); Potassium 4.5 mmol/L (3.4-5.1); Sodium 140 mmol/L (137-145); Total Protein 7.1 g/dL (6.3-8.2); Triglycerides 50 mg/dL (35-150)
[2024-08-26 11:34] LABS: Percent Iron Saturation 17 % (15-50); Total Iron Binding Capacity 318 ug/dL (265-497); Transferrin 273 mg/dL (206-381)
[2024-08-26 11:57] LABS: TSH w/ Reflex to FT4 3.21 uIU/mL (0.47-4.68)
[2024-08-26 12:01] LABS: Ferritin 72 ng/mL (6-137)
== END ==
PROVIDERS: PCP Registered Nurse Diabetes Educator; Referring Provider Registered Nurse Diabetes Educator; Visit Provider Registered Nurse Diabetes Educator
DX: R73.01 Impaired fasting glucose (principal); E78.5 Hyperlipidemia, unspecified; R74.8 Abnormal levels of other serum enzymes; C50.911 Malignant neoplasm of unspecified site of right female breast; L65.0 Telogen effluvium
CPT/HCPCS: 36415; 80053; 80061; 80076; 82728; 83036; 83540; 83550; 84443; 85025

== ENCOUNTER 2024-12-17 12:36 | Day surgery (SDC) | payer OTHER, SELFPAY ==
[2024-12-17 12:49] VITALS: BP 124/63; PULSE 75; RESP 17; TEMP 36.3; O2SAT 99
[2024-12-17] MEDS: LACTATED RINGERS 1,000 ML 42 ML IV (12:56)
--- NOTE | 2024-12-17 13:01 | PM.HP.IH.1 ---
History of Present Illness History of Present Illness Date Patient Seen: 12/17/24 Time Patient Seen: 13:01 Chief complaint: Screening Colonoscopy Narrative: Avelina is a 44-year-old woman here for screening colonoscopy. She was never had one before. Her father had colon cancer in his 50s. [facility] Medical History Genitourinary syndrome of menopause Impaired fasting blood sugar Dyslipidemia Chicken pox (~1985) Mood disorder due to medical condition Lichen sclerosus Surgical History Hx of cholecystectomy (09/2016) Hx of dilation and curettage (2004) Hx of knee surgery (1990) History of surgery (1987) Anesthesia History of right mastectomy (~04/2016) History of cholecystectomy (~09/2016) History of surgery Family History Father Colon cancer Grandfather History of heart disease Grandfather Fall Social History household members: spouse and children Smoking Status: Never smoker alcohol intake: current Meds Home Medications and Allergies Home Medications ?Medication ?Instructions ?Recorded ?Confirmed ?Type citalopram 10 mg tablet 10 mg PO DAILY #90 tabs 09/03/23 09/02/24 Rx estradiol 10 mcg vaginal tablet 10 mcg vaginal DAILY #30 tabs 09/03/23 09/02/24 Rx (Vagifem) guaifenesin 1,200 mg tablet, 1,200 mg PO Q12H #30 tabs 11/19/23 09/02/24 Rx extended release 12 hr acetaminophen 120 mg-codeine 12 10 ml PO Q6H PRN pain and cough 11/30/23 09/02/24 Rx mg/5 mL oral solution #118 mL clobetasol 0.05 % topical ointment 1 applic topical DAILY #15 grams 09/02/24 09/02/24 Rx letrozole 2.5 mg tablet 2.5 mg PO DAILY #90 tabs 09/02/24 09/02/24 Rx dextroamphetamine-amphetamine ER 25 mg PO QAM #30 caps 09/06/24 12/17/24 Rx 25 mg 24hr capsule,extend release (Adderall XR) dextroamphetamine-amphetamine ER 25 mg PO QAM #30 caps 09/06/24 12/17/24 Rx 25 mg 24hr capsule,extend release (Adderall XR) dextroamphetamine-amphetamine ER 25 mg PO QAM #30 caps 09/06/24 12/17/24 Rx 25 mg 24hr capsule,extend release (Adderall XR) Allergies Allergy/AdvReac Type Severity Reaction Status Date / Time No Known Drug Allergies Allergy Verified 12/17/24 12:46 Exam Vital Signs (past 8 hours): - 12/17/24 12:49 Temperature 97.3 F L Pulse Rate 75 Respiratory Rate 17 Blood Pressure 124/63 Pulse Oximetry 99 Oxygen Delivery Method Room Air Oxygen Delivery Method Room Air Const General: No acute distress Resp Effort & Inspection: normal respiratory effort Assessment & Plan Assessment and plan (1) Family history of colon cancer: Status: Acute Plan Colonoscopy Time-Based Coding :: [TOTAL MINUTES] spent with patient and on the chart (including review of chart, obtaining history, exam, reviewing outside data, placing orders, documenting exam and treatment plan, and counseling patient) on [DATE]. PROFEE Manager Infusion Document charge(s): No
[2024-12-17 13:33] VITALS: BP 110/67; PULSE 72; RESP 16; TEMP 36.2; O2SAT 99
[2024-12-17 13:35] VITALS: BP 111/68; PULSE 70; RESP 19; O2SAT 98
--- NOTE | 2024-12-17 13:37 | PM.OP.COLON ---
Operative Date/Time/Diagnoses Date of procedure: 12/17/24 Time of procedure: 13:37 Pre-op diagnosis: Family history of colon cancer Post-op diagnosis: same Procedure & Clinicians Study performed: Colonoscopy Same procedure(s) as scheduled: Yes Surgeon: Mayur Worrell Anesthesia Type: MAC +/- Procedure Notes Procedure in detail: Surgeon: Mayur Worrell MD Anesthesia: Deb Xie MERCHANDISING MANAGER Procedure: The patient was brought to the endoscopy suite, placed in left lateral decubitus position. The patient was connected to monitoring devices. A time-out was performed. Sedation was administered. Once the patient was adequately sedated, a digital rectal exam was performed and was normal. The scope was then inserted and advanced to the cecum where the appendiceal orifice was identified and photographed. The scope was then slowly withdrawn over greater than 6 minutes. The mucosa was thoroughly inspected. No abnormalities were found. The scope was retroflexed in the rectum. The scope was straightened and removed. The patient was awakened and brought to recovery. Scope withdrawal time: 6 minutes Sedation time: 13 minutes EBL: 0 Findings: Normal colon Post-procedure Recommendations: Colonoscopy in 5 years Disposition: PACU
[2024-12-17 13:40] VITALS: BP 112/67; PULSE 67; RESP 19; O2SAT 98
== END 2024-12-17 13:46 | disposition home or self-care (01) ==
PROVIDERS: PCP Registered Nurse Diabetes Educator; Referring Provider Surgery; Visit Provider Surgery
PROC: 0DJD8ZZ Inspection of Lower Intestinal Tract, Via Natural or Artificial Opening Endoscopic (ICD-10-PCS; CPT 45378; principal; 2024-12-17 13:30)
DX: Z12.11 Encounter for screening for malignant neoplasm of colon (principal); Z80.0 Family history of malignant neoplasm of digestive organs
CPT/HCPCS: 45378; J2405; J2704

== ENCOUNTER → 2025-03-15 09:12 | Outpatient (CLI) | payer OTHER, SELFPAY ==
[2025-03-15 09:59] LABS: Hemoglobin A1C% w Est Avg Glu 5.1 % (4.0-6.0)
[2025-03-15 10:08] LABS: Alanine Aminotransferase 31 IU/L (<35); Albumin 4.3 g/dL (3.5-5.0); Albumin Globulin Ratio 1.6 (1.0-2.8); Alkaline Phosphatase 93 U/L (38-126); Cholesterol 211 mg/dL (140-199); Globulin 2.7 g/dL (1.7-4.1); Glucose 105 mg/dL (70-99); HDL Cholesterol 56 mg/dL (40-60); HEMOLYSIS 26 (0-50); Total Protein 7.0 g/dL (6.3-8.2); Triglycerides 104 mg/dL (35-150)
== END ==
PROVIDERS: PCP Registered Nurse Diabetes Educator; Referring Provider Registered Nurse Diabetes Educator; Visit Provider Registered Nurse Diabetes Educator
DX: R73.01 Impaired fasting glucose (principal); E78.5 Hyperlipidemia, unspecified; R74.8 Abnormal levels of other serum enzymes; L68.0 Hirsutism; L70.0 Acne vulgaris
CPT/HCPCS: 36415; 80061; 80076; 82627; 82947; 83036; 83498; 84403